=== PATIENT | male | born 1960 | race Caucasian/White ===

== ENCOUNTER → 2023-07-13 13:39 | Outpatient (BNVA) | payer OTHER, SELFPAY | PROVIDERS: Visit Provider Physician Assistant Medical | DX: M25.511 Pain in right shoulder (principal) | CPT/HCPCS: 99203 ==

== ENCOUNTER → 2023-08-03 13:30 | Outpatient (BNVA) | payer OTHER, SELFPAY | PROVIDERS: Visit Provider Physician Assistant Medical | DX: M25.511 Pain in right shoulder (principal) | CPT/HCPCS: 99213 ==